=== PATIENT | male | born 1990 | race Caucasian/White ===

== ENCOUNTER 2020-02-23 11:32 | Day surgery (SDC) | payer SELFPAY ==
[~2020-02-23] VITALS: Ht 177.8 cm; Wt 67.7 kg
[2020-02-23] VITALS (7 sets, daily range): BP systolic 114–123; BP diastolic 66–85
[2020-02-23] MEDS ORDERED: ONDANSETRON 4 MG/2 ML (SDV) Z0FRAN IVP ONE (12:00)
[2020-02-23] MEDS ORDERED: fentaNYL INJECTION 100 MCG/2 ML AMP IVP ONE ×2 (12:00→15:00)
--- NOTE | 2020-02-23 12:00 | ED Abdominal Pain ---
General Stated Complaint: RLQ PAIN, CHILLS Source of Information: Patient Exam Limitations: No Limitations History of Present Illness Date Seen by Provider: Feb 23, 2020 Time Seen by Provider: 11:58 Initial Comments To ER with right lower quadrant pain that began as a mild ache last night. Got progressively worse since then and associated with nausea. Was seen at primary care's office and referred to the emergency room. Nothing to eat since last night at 9, did drink some water this morning Timing/Duration: 12-24 Hours Severity/Quality: Moderate Location: RLQ Radiation: No Radiation Activities at Onset: None Associated Symptoms: Nausea/Vomiting Allergies and Home Medications Allergies Coded Allergies: No Known Drug Allergies (Unverified , 02/23/20) Patient Home Medication List Home Medication List Reviewed: Yes Review of Systems Review of Systems Constitutional: see HPI EENTM: No Symptoms Reported Respiratory: No Symptoms Reported Cardiovascular: No Symptoms Reported Gastrointestinal: See HPI, Abdominal Pain, Nausea Genitourinary: No Symptoms Reported Musculoskeletal: no symptoms reported Skin: no symptoms reported Psychiatric/Neurological: No Symptoms Reported Endocrine: No Symptoms Reported Hematologic/Lymphatic: No Symptoms Reported Past Gccmtzn-Ejgxjd-Yzmrrz Hx Patient Social History Recent Foreign Travel: No Contact w/Someone Who Travel: No Physical Exam Vital Signs Vital Signs - First Documented 02/23/20 11:45 Temp 36.9 Pulse 84 Resp 17 B/P (MAP) 141/77 (98) Pulse Ox 99 O2 Delivery Room Air Capillary Refill : Height/Weight/BMI Height: '" Weight: lbs. oz. kg; BMI Method: General Appearance: WD/WN, no apparent distress HEENT: PERRL/EOMI, normal ENT inspection Neck: non-tender, full range of motion Respiratory: no respiratory distress, no accessory muscle use Gastrointestinal: normal bowel sounds, soft, tenderness (tenderness to palpation right lower abdomen. Positive heeltap test.) Extremities: normal range of motion, non-tender (if he needs week and) Neurologic/Psychiatric: alert, normal mood/affect, oriented x 3 Skin: normal color, warm/dry Progress/Results/Core Measures Results/Orders Lab Results Laboratory Tests Test 02/23/20 11:50 02/23/20 12:00 Range/Units White Blood Count 13.9 H 4.3-11.0 10^3/uL Red Blood Count 5.09 4.35-5.85 10^6/uL Hemoglobin 15.4 13.3-17.7 G/DL Hematocrit 45 40-54 % Mean Corpuscular Volume 88 80-99 FL Mean Corpuscular Hemoglobin 30 25-34 PG Mean Corpuscular Hemoglobin Concent 34 32-36 G/DL Red Cell Distribution Width 12.7 10.0-14.5 % Platelet Count 218 130-400 10^3/uL Mean Platelet Volume 12.2 H 7.4-10.4 FL Neutrophils (%) (Auto) 65 42-75 % Lymphocytes (%) (Auto) 22 12-44 % Monocytes (%) (Auto) 11 0-12 % Eosinophils (%) (Auto) 2 0-10 % Basophils (%) (Auto) 1 0-10 % Neutrophils # (Auto) 9.0 H 1.8-7.8 X 10^3 Lymphocytes # (Auto) 3.0 1.0-4.0 X 10^3 Monocytes # (Auto) 1.5 H 0.0-1.0 X 10^3 Eosinophils # (Auto) 0.3 0.0-0.3 10^3/uL Basophils # (Auto) 0.1 0.0-0.1 10^3/uL Sodium Level 140 135-145 MMOL/L Potassium Level 4.2 3.6-5.0 MMOL/L Chloride Level 105 98-107 MMOL/L Carbon Dioxide Level 23 21-32 MMOL/L Anion Gap 12 5-14 MMOL/L Blood Urea Nitrogen 13 7-18 MG/DL Creatinine 1.16 0.60-1.30 MG/DL Estimat Glomerular Filtration Rate > 60 BUN/Creatinine Ratio 11 Glucose Level 89 70-105 MG/DL Calcium Level 9.5 8.5-10.1 MG/DL Corrected Calcium 8.5-10.1 MG/DL Total Bilirubin 0.7 0.1-1.0 MG/DL Aspartate Amino Transf (AST/SGOT) 19 5-34 U/L Alanine Aminotransferase (ALT/SGPT) 15 0-55 U/L Alkaline Phosphatase 41 40-136 U/L C-Reactive Protein High Sensitivity 0.74 H 0.00-0.50 MG/DL Total Protein 7.7 6.4-8.2 GM/DL Albumin 4.9 H 3.2-4.5 GM/DL Urine Color YELLOW Urine Clarity CLEAR Urine pH 7.5 5-9 Urine Specific [place] 1.020 1.016-1.022 Urine Protein NEGATIVE NEGATIVE Urine Glucose (UA) NEGATIVE NEGATIVE Urine Ketones NEGATIVE NEGATIVE Urine Nitrite NEGATIVE NEGATIVE Urine Bilirubin NEGATIVE NEGATIVE Urine Urobilinogen 1.0 < = 1.0 MG/DL Urine Leukocyte Esterase NEGATIVE NEGATIVE Urine RBC (Auto) NEGATIVE NEGATIVE Urine RBC NONE /HPF Urine WBC 0-2 /HPF Urine Squamous Epithelial Cells 0-2 /HPF Urine Crystals NONE /LPF Urine Bacteria NEGATIVE /HPF Urine Casts NONE /LPF Urine Mucus NEGATIVE /LPF Urine Culture Indicated NO My Orders Orders - HOWARD MOJICA APRN Cbc With Automated Diff (02/23/20 11:56) Comprehensive Metabolic Panel (02/23/20 11:56) Hs C Reactive Protein (02/23/20 11:56) Ua Culture If Indicated (02/23/20 11:56) Ed Iv/Invasive Line Start (02/23/20 11:56) Ct Abd/Pelv W (Appendicitis) (02/23/20 11:56) Ondansetron Injection (Zofran Injectio (02/23/20 12:00) Fentanyl Injection (Sublimaze Injection (02/23/20 12:00) Iohexol Injection (Omnipaque 350 Mg/Ml 1 (02/23/20 12:15) Received Contrast (Hold Metformin- Contr (02/23/20 12:15) Sodium Chloride Flush (Catheter Flush Sy (02/23/20 12:15) Ns (Ivpb) (Sodium Chloride 0.9% Ivpb Bag (02/23/20 12:15) Medications Given in ED Current Medications Medications Dose Ordered Sig/Doug Route Start Time Stop Time Status Last Admin Dose Admin Fentanyl Citrate 50 mcg ONCE ONCE IVP 02/23/20 12:00 02/23/20 12:01 DC 02/23/20 12:08 50 MCG Iohexol 100 ml ONCE ONCE IV 02/23/20 12:15 02/23/20 12:16 DC 02/23/20 12:30 85 ML Ondansetron HCl 8 mg ONCE ONCE IVP 02/23/20 12:00 02/23/20 12:01 DC 02/23/20 12:04 8 MG Sodium Chloride 10 ml NEEDED PRN IV 02/23/20 12:15 02/23/20 12:30 10 ML Sodium Chloride 100 ml ONCE ONCE IV 02/23/20 12:15 02/23/20 12:16 DC 02/23/20 12:30 80 ML Vital Signs/I&O 02/23/20 11:45 Temp 36.9 Pulse 84 Resp 17 B/P (MAP) 141/77 (98) Pulse Ox 99 O2 Delivery Room Air Departure Communication (Admissions) NAME: [facility] REC#: [id number] PT STATUS: REG ER : 1990 PHYSICIAN: HOWARD MOJICA SENIOR PROCESS ANALYST ADMIT DATE: 02/23/20/ER Draft Date of Exam:02/23/20 CT ABD/PELV W (APPENDICITIS) PROCEDURE: CT abdomen and pelvis with contrast, rule out appendicitis. TECHNIQUE: Multiple contiguous axial images were obtained through the abdomen and pelvis after the administration of intravenous contrast. All CT scans use one or more of the following dose optimizing techniques: automated exposure control, MA and/or KvP adjustment based on a patient size and exam type, or iterative reconstruction. INDICATION: Right lower quadrant pain for one day. COMPARISON: No prior studies are available for comparison. FINDINGS: The lung bases are clear. The liver and gallbladder are unremarkable. No biliary ductal dilatation is identified. The pancreas and spleen are unremarkable. There is no adrenal mass. Small densities are identified in the kidneys which may represent nonobstructing calculi. No definite hydronephrosis is seen. Aorta is non-aneurysmal. The bowel loops are normal caliber. No obstruction is seen. The appendix is visualized in the right lower quadrant and right pelvis. There is a portion of the appendix that does appear to be somewhat thickened and there is some mild periappendiceal inflammatory stranding. This is best seen on image 82, series 2 There is no free fluid or fluid collection identified. The bladder is decompressed. The prostate is unremarkable. IMPRESSION: 1. Findings suggestive of bilateral nonobstructing nephrolithiasis. Calculus evaluation is limited due to absence of precontrast imaging. 2. Findings suggestive of acute appendicitis. No abscess formation or bowel obstruction is identified. Dictated on workstation # [id number] Dict: 02/23/20 1235 Trans: 02/23/20 1243 [facility] [id number] Interpreted by: YAO NESBITT MD Electronically signed by: Impression Primary Impression: Appendicitis Qualified Codes: K35.30 - Acute appendicitis with localized peritonitis, without perforation or gangrene Disposition: ADMITTED INPATIENT Condition: Stable Admissions Decision to Admit Reason: Admit from ER (General) Decision to Admit/Date: Feb 23, 2020 Time/Decision to Admit Time: 12:04 Departure-Patient Inst. Referrals: NO,LOCAL PHYSICIAN (PCP/Family) Primary Care Physician HOWARD MOJICA APRN Feb 23, 2020 12:00
[2020-02-23 12:09] LABS: BASOPHILS # (AUTO) 0.1 10^3/uL (0.0-0.1); BASOPHILS % (AUTO) 1 % (0-10); EOSINOPHILS # (AUTO) 0.3 10^3/uL (0.0-0.3); EOSINOPHILS % (AUTO) 2 % (0-10); HEMATOCRIT 45 % (40-54); HEMOGLOBIN 15.4 G/DL (13.3-17.7); LYMPHOCYTES % (AUTO) 22 % (12-44); MEAN CORPUSCULAR HEMOGLOBIN 30 PG (25-34); MEAN CORPUSCULAR HGB CONC 34 G/DL (32-36); MEAN CORPUSCULAR VOLUME 88 FL (80-99); MEAN PLATELET VOLUME 12.2 FL (7.4-10.4); MONOCYTES # (AUTO) 1.5 X 10^3 (0.0-1.0); MONOCYTES % (AUTO) 11 % (0-12); NEUTROPHILS % (AUTO) 65 % (42-75); PLATELET COUNT 218 10^3/uL (130-400); RED CELL DISTRIBUTION WIDTH 12.7 % (10.0-14.5); WHITE BLOOD COUNT 13.9 10^3/uL (4.3-11.0)
[2020-02-23 12:11] LABS: BILIRUBIN,URINE NEGATIVE (NEGATIVE); CLARITY,URINE CLEAR; COLOR,URINE YELLOW; GLUCOSE, URINE (UA) NEGATIVE (NEGATIVE); KETONES,URINE NEGATIVE (NEGATIVE); LEUKOCYTE ESTERASE ,URINE NEGATIVE (NEGATIVE); NITRITE,URINE NEGATIVE (NEGATIVE); PH,URINE 7.5 (5-9); PROTEIN,URINE NEGATIVE (NEGATIVE)
[2020-02-23] MEDS ORDERED: IOHEXOL 350 MG/ML 100 ML (OMNIPAQUE 350) VIAL IV ONE (12:15)
[2020-02-23] MEDS ORDERED: CATHETER FLUSH 10 ML SYR IV PRN (12:15)
[2020-02-23] MEDS ORDERED: HOLD METFORMIN - RECEIVED CONTRAST 20 ML VIAL IV SCH (12:15)
[2020-02-23] MEDS ORDERED: NS 100 ML (IVPB) BAG IV ONE (12:15)
[2020-02-23 12:21] LABS: BACTERIA,URINE NEGATIVE /HPF; SQUAMOUS EPITHELIAL CELL,UR 0-2 /HPF; WBC,URINE 0-2 /HPF
[2020-02-23 12:24] LABS: ALBUMIN 4.9 GM/DL (3.2-4.5); CHLORIDE 105 MMOL/L (98-107); POTASSIUM 4.2 MMOL/L (3.6-5.0); SODIUM 140 MMOL/L (135-145)
[2020-02-23 12:25] LABS: CALCIUM 9.5 MG/DL (8.5-10.1)
[2020-02-23 12:26] LABS: GLUCOSE 89 MG/DL (70-105); TOTAL PROTEIN 7.7 GM/DL (6.4-8.2)
[2020-02-23 12:27] LABS: CARBON DIOXIDE 23 MMOL/L (21-32)
[2020-02-23 12:28] LABS: BILIRUBIN,TOTAL 0.7 MG/DL (0.1-1.0)
[2020-02-23 12:29] LABS: ALKALINE PHOSPHATASE 41 U/L (40-136)
[2020-02-23 12:30] LABS: CREATININE SERUM 1.16 MG/DL (0.60-1.30); GFR ESTIMATED > 60
[2020-02-23 12:31] LABS: BUN/CREATININE RATIO 11
[2020-02-23 12:33] LABS: ALANINE AMINOTRANSFERASE 15 U/L (0-55)
--- NOTE | 2020-02-23 12:43 | Diagnostic Imaging Report ---
PROCEDURE: CT abdomen and pelvis with contrast, rule out appendicitis. TECHNIQUE: Multiple contiguous axial images were obtained through the abdomen and pelvis after the administration of intravenous contrast. All CT scans use one or more of the following dose optimizing techniques: automated exposure control, MA and/or KvP adjustment based on a patient size and exam type, or iterative reconstruction. INDICATION: Right lower quadrant pain for one day. COMPARISON: No prior studies are available for comparison. FINDINGS: The lung bases are clear. The liver and gallbladder are unremarkable. No biliary ductal dilatation is identified. The pancreas and spleen are unremarkable. There is no adrenal mass. Small densities are identified in the kidneys which may represent nonobstructing calculi. No definite hydronephrosis is seen. Aorta is non-aneurysmal. The bowel loops are normal caliber. No obstruction is seen. The appendix is visualized in the right lower quadrant and right pelvis. There is a portion of the appendix that does appear to be somewhat thickened and there is some mild periappendiceal inflammatory stranding. This is best seen on image 82, series 2 There is no free fluid or fluid collection identified. The bladder is decompressed. The prostate is unremarkable. IMPRESSION: 1. Findings suggestive of bilateral nonobstructing nephrolithiasis. Calculus evaluation is limited due to absence of precontrast imaging. 2. Findings suggestive of acute appendicitis. No abscess formation or bowel obstruction is identified. Dictated by: Dictated on workstation # [id number]
--- NOTE | 2020-02-23 12:48 | NUR ---
Pt reports being in touch with mother via texting and does not feel this nurse needs to call at this time.
[2020-02-23] MEDS ORDERED: BUP/EPI 0.5% 1:200,000 (SENSORCAINE) 30 ML VIAL ONE (14:22)
--- OUTSIDE RECORDS SUMMARY | 2020-02-23 14:28 | XMS REPORT | Continuity of Care Document ---
Demographics Preferred Language Unknown Marital Status Unknown Alevism Affiliation Unknown Race Unknown Ethnic Group Unknown Author Organization Unknown Address Unknown Phone Unavailable Allergies There is no data. Medications There is no data. Problems There is no data. Procedures There is no data. Results Test Result Range Complete blood count (CBC) with automate d white blood cell (WBC) differential - 02/23/20 11:50 Blood leukocytes automated count (number/volume) 13.9 10*3/uL 4.3-11.0 Blood erythrocytes automated count (number/volume) 5.09 10*6/uL 4.35-5.85 Venous blood hemoglobin measurement (mass/volume) 15.4 g/dL 13.3-17.7 Blood hematocrit (volume fraction) 45 % 40-54 Automated erythrocyte mean corpuscular volume 88 [ foz_us] 80-99 Automated erythrocyte mean corpuscular h emoglobin (mass per erythrocyte) 30 pg 25-34 Automated erythrocyte mean corpuscular h emoglobin concentration measurement (mass/volume) 34 g/dL 32-36 Automated erythrocyte distribution width ratio 12. 7 % 10.0- 14.5 Automated blood platelet count (count/volume) 218 10*3/uL 130-400 Automated blood platelet mean volume measurement 12.2 [foz_us] 7.4-10.4 Automated blood neutrophils/100 leukocytes 65 % 42-75 Automated blood lymphocytes/100 leukocytes 22 % 12-44 Blood monocytes/100 leukocytes 11 % 0-12 Automated blood eosinophils/100 leukocytes 2 % 0-10 Automated blood basophils/100 leukocytes 1 % 0-10 Blood neutrophils automated count (number/volume) 9.0 10*3 1.8-7.8 Blood lymphocytes automated count (number/volume) 3.0 10*3 1.0-4.0 Blood monocytes automated count (number/volume) 1. 5 10*3 0.0-1.0 Automated eosinophil count 0.3 10*3/uL 0 .0-0.3 Automated blood basophil count (count/volume) 0.1 10*3/uL 0.0-0.1 Comprehensive metabolic panel - 02/23/20 11:50 Serum or plasma sodium measurement (moles/volume) 140 mmol/L 135-145 Serum or plasma potassium measurement (moles/volume) 4.2 mmol/L 3.6-5.0 Serum or plasma chloride measurement (moles/volume) 105 mmol/L 98-107 Carbon dioxide 23 mmol/L 21-32 Serum or plasma anion gap determination (moles/volume) 12 mmol/L 5-14 Serum or plasma urea nitrogen measurement (mass/volume ) 13 mg/dL 7-18 Serum or plasma creatinine measurement (mass/volume) 1.16 mg/dL 0.60-1.30 Serum or plasma urea nitrogen/creatinine mass ratio 11 NRG Serum or plasma creatinine measurement w ith calculation of estimated glomerular filtration rate > NRG Serum or plasma glucose measurement (mass/volume) 89 mg/dL 70-105 Serum or plasma calcium measurement (mass/volume) 9.5 mg/dL 8.5-10.1 Serum or plasma total bilirubin measurement (mass/volu me) 0.7 mg/dL 0.1-1.0 Serum or plasma alkaline phosphatase danni surement (enzymatic activity/volume) 41 U/L 40-136 Serum or plasma aspartate aminotransfera se measurement (enzymatic activity/volume) 19 U/L 5-34 Serum or plasma alanine aminotransferase measurement (enzymatic activity/volume) 15 U/L 0-55 Serum or plasma protein measurement (mass/volume) 7.7 g/dL 6.4-8.2 Serum or plasma albumin measurement (mass/volume) 4.9 g/dL 3.2-4.5 Serum or plasma C reactive protein measu rement (mass/volume) - 02/23/20 11:50 Serum or plasma C reactive protein measurement (mass/v olume) 0.74 mg/dL 0.00-0.50 Complete urinalysis with reflex to cultu re - 02/23/20 12:00 Urine color determination YELLOW NRG Urine clarity determination CLEAR NR G Urine pH measurement by test strip 7.5 5-9 Specific gravity of urine by test strip 1.020 1.016-1.022 Urine protein assay by test strip, semi-quantitative NEGATIVE NEGATIVE Urine glucose detection by automated test strip NE GATIVE NEGATIVE Erythrocytes detection in urine sediment by light micr oscopy NEGATIVE NEGATIVE Urine ketones detection by automated test strip NE GATIVE NEGATIVE Urine nitrite detection by test strip NEGATIVE NEGATIVE Urine total bilirubin detection by test strip NEGA TIVE NEGATIVE Urine urobilinogen measurement by automated test strip (mass/volume) 1.0 mg/dL < = 1.0 Urine leukocyte esterase detection by dipstick NEG ATIVE NEGATIVE Automated urine sediment erythrocyte cou nt by microscopy (number/high power field) NONE NRG Automated urine sediment leukocyte count by microscopy (number/high power field) [HPF] NRG Bacteria detection in urine sediment by light microsco py NEGATIVE NRG Squamous epithelial cells detection in u rine sediment by light microscopy 0-2 NRG Crystals detection in urine sediment by light microsco py NONE NRG Casts detection in urine sediment by light microscopy NONE NRG Mucus detection in urine sediment by light microscopy NEGATIVE NRG Complete urinalysis with reflex to culture NO NRG Encounters ACCT No. Visit Date/Time Discharge Status Pt. Type Provider Facility Loc./Unit Complaint [id number] 02/23/2020 12:11:00 Document Registration
--- NOTE | 2020-02-23 14:45 | NUR ---
Pt swabbed for COVID-19 at this time.
[2020-02-23] MEDS ORDERED: fentaNYL INJECTION 100 MCG/2 ML AMP ONE (14:53)
[2020-02-23] MEDS ORDERED: MIDAZOLAM 2 MG/2 ML (VERSED) VIAL ONE (14:53)
[2020-02-23] MEDS ORDERED: DEXAMETHASONE 10 MG/ML (DECADRON) 1 ML VIAL ONE (15:03)
[2020-02-23] MEDS ORDERED: ONDANSETRON 4 MG/2 ML (SDV) Z0FRAN ONE (15:03)
[2020-02-23] MEDS ORDERED: proPOfol 200 MG/20 ML (DIPRIVAN) VIAL IV ONE (15:03)
[2020-02-23] MEDS ORDERED: LIDOCAINE PF 2% 5 ML (XYLOCAINE) VIAL ONE (15:03)
[2020-02-23] MEDS ORDERED: SEVOFLURANE (ULTANE) 15 ML INHAL SOLN ONE ×2 (15:03→17:50)
[2020-02-23] MEDS ORDERED: metroNIDAZOLE 500 MG (FLAGYL) TAB ONE (15:13)
[2020-02-23] MEDS ORDERED: ceFAZolin INJECTION 1,000 MG ONE (15:13)
[2020-02-23] MEDS ORDERED: WATER (STERILE) FOR INJECTION 10 ML ONE (15:14)
[2020-02-23] MEDS: metroNIDAZOLE 500MG/100ML IVPB 100 ML ONE ×2 (15:31→16:30)
--- NOTE | 2020-02-23 15:40 | History & Physical-Surgical ---
History of Present Illness History of Present Illness Reason for visit/HPI CC: RLQ abd pain seen and evaluated in Emergency Dept. 29 year old male who presented to ed with rlq abd pain that began last night. Constant. Sharp pain that radiates to back. Rates it at worse 6/10. Movement makes worse. Laying still better. [place] every bump in the road. Ct scan reviewed and consistent with appendicitis. Denies n/v fever sweats chills shortness of breath or chest pain. Date of Admission T Date Seen by a Provider: Feb 23, 2020 Time Seen by a Provider: 15:37 I consulted on this patient on 02/23/20 15:35 Attending Physician Leann Cabello DO Admitting Physician No,Local Physician Consult Allergies and Home Medications Allergies Coded Allergies: No Known Drug Allergies (Unverified , 02/23/20) Patient Home Medication List Home Medication List Reviewed: Yes Past Iypmmua-Hmuqym-Biqdkv Hx Patient Social History Alcohol Use: Denies Use Recreational Drug Use: Yes (marijuana) Smoking Status: Current Someday Smoker Type Used: Cigarettes, Electronic/Vapor 2nd Hand Smoke Exposure: Yes Recent Foreign Travel: No Contact w/Someone Who Travel: No Recent Infectious Disease Expo: No Recent Hopitalizations: No Surgeries History of Surgeries: Yes (wisdom teeth) Respiratory History of Respiratory Disorde: No Cardiovascular History of Cardiac Disorders: No Neurological History of Neurological Disord: No Genitourinary History of Genitourinary Disor: No Gastrointestinal History of Gastrointestinal Di: No Musculoskeletal History of Musculoskeletal Dis: No Endocrine History of Endocrine Disorders: No HEENT History of HEENT Disorders: No Cancer History of Cancer: No Psychosocial History of Psychiatric Problem: Yes Behavioral Health Disorders: Anxiety, Depression Reviewed Nursing Assessment Reviewed/Agree w Nursing PMH: Yes Family Medical History Significant Family History: No Pertinent Family Hx Review of Systems Constitutional: No chills, No diaphoresis EENTM: No ear pain, No blurred vision Respiratory: No cough, No dyspnea on exertion, No short of breath Cardiovascular: No chest pain, No palpitations Gastrointestinal: RLQ, abdominal pain (RLQ); No nausea, No vomiting Genitourinary: No decreased output, No discharge Musculoskeletal: No back pain, No joint pain Skin: No change in color, No change in hair/nails, No lesions Psychiatric/Neurological: Denies Anxiety, Denies Depressed, Denies Emotional Problems All Other Systems Reviewed Negative Unless Noted: Yes (Negative excepted noted.) Physical Exam Vital Signs Vital Signs - First Documented 02/23/20 11:45 Temp 36.9 Pulse 84 Resp 17 B/P (MAP) 141/77 (98) Pulse Ox 99 O2 Delivery Room Air Capillary Refill : Less Than 3 Seconds Height, Weight, BMI Height: '" Weight: lbs. oz. kg; 21.00 BMI Method: General Appearance: No Apparent Distress (laying still in bed), WD/WN HEENT: PERRL/EOMI, Normal ENT Inspection Neck: Normal Inspection, Non Tender Respiratory: Chest Non Tender, No Accessory Muscle Use, No Respiratory Distress Cardiovascular: Regular Rate, Rhythm, No Edema Gastrointestinal: Soft, Tenderness (right lower quadrant) Rectal: Deferred Back: Normal Inspection, No CVA Tenderness Extremity: Normal Capillary Refill, Normal Inspection, Normal Range of Motion, Non Tender, No Calf Tenderness Neurologic/Psychiatric: Alert, Oriented x3, No Motor/Sensory Deficits, Normal Mood/Affect, tile grader II-XII Norm as Tested Skin: Normal Color, Warm/Dry Lymphatic: No Adenopathy Data Review Labs Laboratory Tests 02/23/20 11:50: White Blood Count 13.9H, Red Blood Count 5.09, Hemoglobin 15.4, Hematocrit 45, Mean Corpuscular Volume 88, Mean Corpuscular Hemoglobin 30, Mean Corpuscular Hemoglobin Concent 34, Red Cell Distribution Width 12.7, Platelet Count 218, Mean Platelet Volume 12.2H, Neutrophils (%) (Auto) 65, Lymphocytes (%) (Auto) 22, Monocytes (%) (Auto) 11, Eosinophils (%) (Auto) 2, Basophils (%) (Auto) 1, Neutrophils # (Auto) 9.0H, Lymphocytes # (Auto) 3.0, Monocytes # (Auto) 1.5H, Eosinophils # (Auto) 0.3, Basophils # (Auto) 0.1, Sodium Level 140, Potassium Level 4.2, Chloride Level 105, Carbon Dioxide Level 23, Anion Gap 12, Blood Urea Nitrogen 13, Creatinine 1.16, Estimat Glomerular Filtration Rate > 60, BUN/Creatinine Ratio 11, Glucose Level 89, Calcium Level 9.5, Corrected Calcium , Total Bilirubin 0.7, Aspartate Amino Transf (AST/SGOT) 19, Alanine Aminotransferase (ALT/SGPT) 15, Alkaline Phosphatase 41, C-Reactive Protein High Sensitivity 0.74H, Total Protein 7.7, Albumin 4.9H 02/23/20 12:00: Urine Color YELLOW, Urine Clarity CLEAR, Urine pH 7.5, Urine Specific [place] 1.020, Urine Protein NEGATIVE, Urine Glucose (UA) NEGATIVE, Urine Ketones NEGATIVE, Urine Nitrite NEGATIVE, Urine Bilirubin NEGATIVE, Urine Urobilinogen 1.0, Urine Leukocyte Esterase NEGATIVE, Urine RBC (Auto) NEGATIVE, Urine RBC NONE, Urine WBC 0-2, Urine Squamous Epithelial Cells 0-2, Urine Crystals NONE, Urine Bacteria NEGATIVE, Urine Casts NONE, Urine Mucus NEGATIVE, Urine Culture Indicated NO 02/23/20 14:45: Assessment/Plan Assessment/Plan Admission Diagonsis rlq abdominal pain acute appendicitis discussed risks and benefits of laparoscopic appendectomy all other indicated procedures he understands and wishes to proceed to or npo ancef/flagyl Admission Status: Other (Same Day Surgery) Assessment/Plan rlq abdominal pain acute appendicitis discussed risks and benefits of laparoscopic appendectomy all other indicated procedures he understands and wishes to proceed to or npo ancef/flagyl LEANN CABELLO DO Feb 23, 2020 15:40
[2020-02-23] MEDS ORDERED: LACTATED RINGERS 1,000 ML IV PRN (16:44)
[2020-02-23] MEDS ORDERED: NEOSTIGMINE 3 MG/3 ML VIAL ONE (16:49)
[2020-02-23] MEDS ORDERED: GLYCOPYRROLATE 0.2 MG/ML (ROBINUL) 2 ML VIAL ONE (16:49)
--- NOTE | 2020-02-23 16:52 | Progress Note-Post Operative ---
Post-Operative Progess Note Surgeon (s)/Powerhouse Operator (s) Surgeon LEANN KUMARI DO Powerhouse Operator: na Pre-Operative Diagnosis appendicitis Post-Operative Diagnosis appendicitis Procedure & Operative Findings Date of Procedure 02/23/20 Procedure Performed/Findings PROCEDURE: Laparoscopic appendectomy. COMPLICATIONS: None. INDICATIONS: The patient is a 29 year old male who has been having right lower quadrant abdominal pain. Patient's exam consistent with appendicitis. I discussed risk and benefits of laparoscopic appendectomy and all indicated procedures with the possibility being a normal appendix. The patient understands the risks and benefits and wishes to proceed. Consent was signed on the chart. DESCRIPTION OF PROCEDURE: The patient was taken to the operating suite, prepped and draped in a sterile fashion. Timeout was performed. Local anesthetic was infiltrated just above the umbilicus and 11-blade scalpel was used to make a skin incision. Cautery was used to dissect down to the fascia and scored. Kochers were used to grasp and elevate it and the abdomen was then entered. A 0 Vicryl was placed in a [id number] fashion for closure at the end of the case. The balloon trocar was inserted into the abdomen and pneumoperitoneum was achieved. Under direct visualization of the laparoscope, a 5 mm trocar was placed in the suprapubic region and a 5 mm trocar was placed in the left lower quadrant. Appendix was located, inflamed dilated appendix with some adhesion. The base of the appendix was dissected around. Once at the base an Endo-MATT 2.5 stapler was then fired across the base of the appendix. The mesoappendix was then divided. It was then placed in an Endobag and removed through the 12 mm trocar site. The abdomen was then irrigated and suctioned. No other pathology noted. The abdomen was then desufflated and the trocars were removed. The 0 Vicryl placed at the beginning of the case was then tied closing the 12 mm fascial defect. The skin was then closed using 4-0 Monocryl in a subcuticular fashion. The abdomen was then washed and dried and Skin Affix was placed over the incisions. The patient tolerated the procedure well without any complications and was taken to the recovery room in stable condition. Anesthesia Type gen Estimated Blood Loss Estimated blood loss (mL): minimal Specimens/Packing Specimens Removed LEANN Colunga DO Feb 23, 2020 16:52
[2020-02-23] MEDS ORDERED: HYDR-4226 PO (16:54)
[2020-02-23] MEDS ORDERED: DOCU-143 PO (16:54)
--- NOTE | 2020-02-23 16:55 | Discharge Inst-Simple/Standard ---
Discharge Inst-Standard Discharge Medications New, Converted or Re-Newed RX: RX on Chart Patient Instructions/Follow Up Plan of Care/Instructions/FU: 2 weeks [place] Activity as Tolerated: No Discharge Diet: Regular Diet Other Inst to Patient Follow up Appt: Make appointment for 2 week. Instructions: No lifting greater than 10 pounds. No strenuous activity. May shower in 24 hours, no tub bath or soaking. Use incentive spirometer at home as directed. No Smoking Skin/Wound Care: You have special glue over your incision that will fall off on it's own. Symptoms to Report: Appetite Changes, Extremity Discoloration, Numbness/Tingling, Swelling Increased, Bleeding Excessive, Eyesight Changes, Pain Increased, Urine Color Change, Constipation(Persistent), Fever over 101 degree F, Pain/Pressure in chest, Urinating Difficulty, Cough Up/Vomit Blood, Heart Beat Irreg/Pounding, Pain/Pressure in jaw, Vaginal Bleeding Increase, Cramps in feet or legs, Lightheadedness, Pain/Pressure in shoulder, Diarrhea(Persistent), Memory Changes Suddenly, Questions/Concerns, Weight gain consecutive days, Dizziness/Fainting, Nausea/Vomiting, Shortness of Breath, Weight gain over 2 pounds If questions or concerns contact your physician Or seek help at emergency department. LEANN KUMARI DO Feb 23, 2020 16:55
[2020-02-23] MEDS ORDERED: ROCURONIUM 10 MG/ML 5 ML SYRINGE IV ONE (17:04)
[2020-02-23] MEDS ORDERED: morphine INJ 10 MG/ML 1ML (SYR OR VIAL) ONE (17:12)
--- NOTE | 2020-02-23 17:46 | Anesthesia-General Post-Op ---
General Patient Condition Mental Status/LOC: Same as Preop Cardiovascular: Satisfactory Nausea/Vomiting: Absent Respiratory: Satisfactory Pain: Controlled Complications: Absent Post Op Complications Complications None Follow Up Care/Instructions Patient Instructions None needed. Anesthesia/Patient Condition Patient Condition Patient is doing well, no complaints, stable vital signs, no apparent adverse anesthesia problems. No complications reported per nursing. ILA SHANKS CRNA Feb 23, 2020 17:46
[2020-02-23] MEDS ORDERED: KETOROLAC 30 MG/ML VIAL ONE (17:50)
--- OUTSIDE RECORDS SUMMARY | 2020-02-23 19:05 | XMS REPORT | Continuity of Care Document ---
Author Organization Unknown Address Unknown Phone Unavailable Allergies Active Description Code Type Severity Reaction Onset Reported/Identified Relationship to Patient Clinical Status Yes No Known Drug Allergies [id number] Drug Allergy Unknown N/A 02/23/2020 Medications There is no data. Problems There [...] Status Pt. Type Provider Facility Loc./Unit Complaint [id number] 02/23/2020 15:14:[address] Outpatient LEANN KUMARI DO [facility] [place]
== END 2020-02-23 19:07 | disposition home or self-care (01) ==
LOC: ER 11:36 → SDC 15:14
PROVIDERS: ATTEND Surgery
DX: K35.80 Unspecified acute appendicitis (principal); F41.9 Anxiety disorder, unspecified; F32.9 Major depressive disorder, single episode, unspecified; F17.210 Nicotine dependence, cigarettes, uncomplicated; K21.9 Gastro-esophageal reflux disease without esophagitis; M54.5 Low back pain; Z20.828 Contact with and (suspected) exposure to other viral communicable diseases
CPT/HCPCS: 44970; 74177; 80053; 81000; 85025; 86141; 99285; U0002; 36415; 87635; 88304; 96374; 96375; 96376